=== PATIENT | male | born 1985 | race Caucasian/White ===

== ENCOUNTER 2023-12-14 05:38 | Observation (INO) | payer BC ==
[2023-12-14 05:55] LABS: Absolute Neutrophil Ct (ANC) 7.12 x10^3/uL (1.78-5.38); BASOPHIL % 0.7 % (0.2-1.2); Basophil (Absolute #) 0.08 x10^3/uL (0.01-0.08); Eosinophil % 3.1 % (0.8-7.0); Eosinophil (Absolute #) 0.35 x10^3/uL (0.04-0.54); Hematocrit 45.4 % (40.1-51.0); Hemoglobin 15.3 g/dL (13.7-17.5); IMMATURE GRAN # 0.04 x10^3u/L (0.001-0.031); IMMATURE GRAN % 0.4 % (0.001-0.429); Lymphocyte (Absolute #) 2.96 x10^3/uL (1.32-3.57); Lymphocytes % 26.5 % (21.8-53.1); Mean Cell Volume 76.6 fL (79.0-92.2); Mean Corpuscular Hemoglobin 25.8 pg (25.7-32.2); Mean Corpuscular Hgb Concent. 33.7 g/dL (32.3-36.5); Mean Platelet Volume 9.3 fL (9.4-12.4); Monocyte (Absolute #) 0.62 x10^3/uL (0.30-0.82); Monocytes % 5.6 % (5.3-12.2); Neutrophil % 63.7 % (34.0-67.9); Platelet Count 308 x10^3/uL (163-337); Red Blood Count 5.93 x10^6/uL (4.63-6.08); White Blood Count 11.2 x10^3/uL (4.23-9.07)
[2023-12-14 06:09] LABS: ALBUMIN 4.2 g/dL (3.5-5.0); ANION GAP 14.8 MEQ/L (5-15); BILIRUBIN,TOTAL 0.7 mg/dL (0.2-1.3); Calcium 9.8 mg/dL (8.4-10.2); Creatinine 1 1.22 mg/dL (0.66-1.25); EST GLOMERULAR FILTRATION RATE 77.3 ML/MIN; MAGNESIUM 2.2 mg/dL (1.6-2.3); Potassium 4.1 mmol/L (3.5-5.1); Total Protein 7.2 g/dL (6.3-8.2)
[2023-12-14] MEDS ORDERED: Nitrostat 0.4 MG (ED) SL ONE (06:23)
[2023-12-14] MEDS: Nitrostat 0.4 MG (ED) SL ONE (06:24)
[2023-12-14] MEDS ORDERED: BABY ASPIRIN 81 MG CHEW ONE (06:38)
[2023-12-14] MEDS: BABY ASPIRIN 81 MG CHEW PO ONE (06:38)
[2023-12-14] MEDS ORDERED: Zofran 4 MG/2 ML VIAL ONE (06:52)
[2023-12-14] MEDS ORDERED: MORPHINE SULFATE 2 MG INJ ONE (06:53)
--- NOTE | 2023-12-14 06:53 | ERPHSYRPT ---
<ARMAND BOYLE EduardDenise - Last Filed: 12/14/23 06:48> - History of Present Illness Time Seen by Provider: 12/14/23 06:00 Historian: patient Exam Limitations: no limitations Patient Subjective Stated Complaint: pt states he woke up with chest pain rad iating into his lt shoulder. rates pain 4/10 and describes as pulsing pain and pressure Triage Nursing Assessment: pt alert and oriented, answers questions approp. pt ambulates into room iwth steady gait noted. respirations nonlabored with lungs cta bilat. heart rate 98 on monitor, sinus rhythm. Physician History: This is a 38-year-old white male patient who arrives by private vehicle secondary to chest pain that came on suddenly at 445 this morning was anterior, substernal, central, pulsating pressure that radiates into his left shoulder. Gaurav aponte has a three-vessel coronary artery bypass. His inside sales specialist is Dr. Lizzy Garsia. He did take 1 baby aspirin prior to arrival. He rates his level of pain as a 4 out of 10. He denies cough. He denies fever. Although he states he does not have a history of hypertension or elevated cholesterol, he is taking metoprolol and atorvastatin. He has a history of anxiety, seizure disorder and gastroesophageal reflux disease. He is not short of breath. He states the last time he had the coronary artery bypass procedure, he did not have any pain. His constellation of symptoms today are different than before. Timing/Duration: today Activities at Onset: sleep Quality: pressure, other Location: substernal ([place]), central Chest Pain Radiation: arm (Left shoulder) Severity of Pain-Max: mild Severity of Pain-Current: mild Modifying Factors: Improves With: nothing Associated Symptoms: denies symptoms Prior Chest Pain/Cardiac Workup: no prior chest pain Nitro Today/Relief: no nitro taken today Aspirin Treatment Today: 81 mg x 1, provided at home Allergies/Adverse Reactions: No Known Drug Allergies Allergy (Verified 12/14/23 05:38) Home Medications: Aspirin 81 gm Chew [Baby Aspirin 81 mg Chew] 81 mg PO QAM 12/14/23 [Histor y] Atorvastatin Calcium [Lipitor 40Mg] 40 mg PO HS 12/14/23 [History] Buspirone HCl 5 mg [Buspar 5 mg] 5 mg PO TIDPRN 12/14/23 [History] Clopidogrel Bisulfate [Plavix] 75 mg PO DAILY 12/14/23 [History] Levetiracetam [Keppra] 750 mg PO BID 12/14/23 [History] Metoprolol Tartrate 50 mg [Lopressor 50 MG] 50 mg PO BID 12/14/23 [History] Omeprazole 20 mg PO DAILY 12/14/23 [History] Ropinirole HCl 0.5 mg [Requip 0.5 MG] 0.5 mg PO HS 12/14/23 [History] Testosterone Cypionate 200 mg IM UD 12/14/23 [History] Hx Tetanus, Diphtheria Vaccination/Date Given: Yes Hx Influenza Vaccination/Date Given: No Hx Pneumococcal Vaccination/Date Given: No Immunizations Up to Date: Yes Travel Risk - International Travel Have you traveled outside of the country in past 3 weeks: No - Emerging Infectious Disease Are you exhibiting symptoms associated with any current EIDs: No - Review of Systems Constitutional: No Symptoms Eyes: No Symptoms Ears, Nose, & Throat: No Symptoms Respiratory: No Symptoms Cardiac: Chest Pain Abdominal/Gastrointestinal: No Symptoms Genitourinary Symptoms: No Symptoms Musculoskeletal: No Symptoms Skin: No Symptoms Neurological: No Symptoms Psychological: No Symptoms Endocrine: No Symptoms Hematologic/Lymphatic: No Symptoms Immunological/Allergic: No Symptoms All Other Systems: Reviewed and Negative - Past Medical History Pertinent Past Medical History: Yes Neurological History: Other ENT History: No Pertinent History Cardiac History: Coronary Artery Disease, High Cholesterol, Hypertension Respiratory History: No Pertinent History Endocrine Medical History: No Pertinent History Musculoskeletal History: No Pertinent History GI Medical History: No Pertinent History History: No Pertinent History Psycho-Social History: Anxiety, Depression Male Reproductive Disorders: No Pertinent History Other Medical History: ADHD, seizures - Past Surgical History Past Surgical History: Yes Neuro Surgical History: No Pertinent History Cardiac: CABG Respiratory: No Pertinent History Gastrointestinal: No Pertinent History Genitourinary: No Pertinent History Musculoskeletal: No Pertinent History Male Surgical History: No Pertinent History Other Surgical History: ABSCESS REMOVED FROM CHEEK. triple vessel cabg nov 2022 Significant Family History: no pertinent family hx - Social History Smoking Status: Former smoker How long have you smoked: 12 YEARS Exposure to second hand smoke: Yes Alcohol Use: Socially Drug Use: none Patient Lives Alone: Yes - Social Determinants of Health Will the patient participate in the screening: Yes Do you worry about a steady place to live?: No Do you have any problems with any of the following?: No known problems In the past 12 months,have you had to go without utilities?: No Transportation Issues: No Has anyone in your support network made you feel unsafe?: No Have you or anyone in your house had to go without enough: No - Physical Exam General Appearance: no apparent distress, alert, anxiety Eye Exam: PERRL/EOMI, eyes nml inspection Ears, Nose, Throat Exam: normal ENT inspection, moist mucous membranes Neck Exam: normal inspection, non-tender, supple, full range of motion Respiratory Exam: normal breath sounds, chest tenderness, lungs clear, airway intact, No respiratory distress Cardiovascular Exam: regular rate/rhythm, normal heart sounds, normal peripheral pulses Gastrointestinal/Abdomen Exam: soft, normal bowel sounds, No tenderness Rectal Exam: not done Back Exam: normal inspection, normal range of motion, No CVA tenderness, No vertebral tenderness Extremity Exam: normal inspection, normal range of motion, pelvis stable Neurologic Exam: alert, oriented x 3, cooperative, thread checker II-XII nml as tested, nml cerebellar function, nml station & gait, sensation nml Skin Exam: normal color, warm, dry Lymphatic Exam: No adenopathy SpO2 Interpretation: normal SpO2: 96 O2 Delivery: Room Air - Course Nursing assessment & vital signs reviewed: Yes EKG Interpreted by Me: RATE (95), Sinus Rhythm, NORMAL AXIS, NORMAL INTERVALS, NORMAL QRS, NORMAL ST-T, Other (No acute ischemic changes on today's twelve-lead EKG. QTc is 467) - Progress Progress: improved, re-examined Air Movement: good Progress Note: 12/14/23 06:57 My medical decision making and the assignment of moderate complexity to this patient's medical issue today is based on review of the patient's past medical history, review the patient's medication list, reviewed patient drug allergy list, history present as and physical findings on examination. The workup includes placement of intravenous line, CBC, CMP, D-dimer, BNP, twelve-lead EKG, troponin level, chest x-ray, magnesium level. I am transferring care of this patient to Dr. Nirmal Sorenson at shift change. He will follow-up on pending lab results and make final disposition. Differential diagnosis includes but is not limited to musculoskeletal pain, electrolyte abnormalities, myocardial infarction, pulmonary embolus, pneumonia, arrhythmia Blood Culture(s) Obtained: No Antibiotics given: No Counseled pt/family regarding: lab results, diagnosis, rad results Medical Desision Making - Diagnostic Testing Radiological Interpretation: Interpreted by me - Departure Departure Disposition: Observation Clinical Impression: Chest pain Condition: Stable Critical Care Time: No Referrals: TAMIKO GALVAN, PROCESS MACHINE OPERATOR [Primary Care Provider] - Follow up/PCP as directed <NIRMAL SORENSON - Last Filed: 12/14/23 07:30> - Nursing Vital Signs Nursing Vital Signs: Initial Vital Signs Temperature 98.2 F 12/14/23 05:38 Pulse Rate 78 12/14/23 05:38 Respiratory Rate 18 12/14/23 05:38 Blood Pressure 162/107 12/14/23 05:38 O2 Sat by Pulse Oximetry 98 12/14/23 05:38 Pain Scale Pain Intensity 4 Ordered Tests: Active Orders 24 hr Category Date Time Status EKG-ER Only STAT Care 12/14/23 05:48 Active IV Insertion STAT Care 12/14/23 05:48 Active CHEST 1 VIEW (PORTABLE) Stat Exams 12/14/23 05:48 Taken CBC W DIFF Stat Lab 12/14/23 05:45 Completed CMP Stat Lab 12/14/23 05:45 Completed D-DIMER QUANTITATIVE Stat Lab 12/14/23 05:45 Completed MAGNESIUM Stat Lab 12/14/23 05:45 Completed TROPONIN Q4H Lab 12/14/23 05:45 Completed TROPONIN Q4H Lab 12/14/23 10:00 Ordered TROPONIN Q4H Lab 12/14/23 14:00 Ordered TROPONIN Q4H Lab 12/14/23 18:00 Ordered TROPONIN Q4H Lab 12/14/23 22:00 Ordered Medication Summary Discontinued Medications Generic Name Dose Route Start Last Admin Trade Name Freq PRN Reason Stop Dose Admin Aspirin 243 mg 12/14/23 06:33 12/14/23 06:38 Aspirin 81 Mg Tab.Chew PO 12/14/23 06:34 243 mg STAT ONE Administration Aspirin Confirm 12/14/23 06:38 Aspirin 81 Mg Tab.Chew Administered 12/14/23 06:39 Dose 243 mg .ROUTE .STK-MED ONE Morphine Sulfate 2 mg 12/14/23 06:45 12/14/23 06:55 Morphine Sulfate 2 Mg/Ml Inj IV 12/14/23 06:46 2 mg STAT ONE Administration Morphine Sulfate Confirm 12/14/23 06:53 Morphine Sulfate 2 Mg/Ml Inj Administered 12/14/23 06:54 Dose 2 mg .ROUTE .STK-MED ONE Nitroglycerin 0.4 mg 12/14/23 06:22 12/14/23 06:24 Nitroglycerin 0.4 Mg (Ed) 0.4 Mg Tab.Subl SL 12/14/23 06:23 0.4 mg STAT ONE Administration Nitroglycerin Confirm 12/14/23 06:23 Nitroglycerin 0.4 Mg (Ed) 0.4 Mg Tab.Subl Administered 12/14/23 06:24 Dose 0.4 mg SL .STK-MED ONE Ondansetron HCl 4 mg 12/14/23 06:45 12/14/23 06:55 Ondansetron Hcl 4 Mg/2 Ml Vial IV 12/14/23 06:46 4 mg STAT ONE Administration Ondansetron HCl Confirm 12/14/23 06:52 Ondansetron Hcl 4 Mg/2 Ml Vial Administered 12/14/23 06:53 Dose 4 mg .ROUTE .STK-MED ONE Lab/Rad Data: Laboratory Result Diagrams 12/14/23 05:45 12/14/23 05:45 Laboratory Results 12/14/23 12/14/23 12/14/23 Range/Units 05:45 05:45 05:45 WBC (4.23-9.07) x10^3/uL RBC (4.63-6.08) x10^6/uL Hgb (13.7-17.5) g/dL Hct (40.1-51.0) % MCV (79.0-92.2) fL MCH (25.7-32.2) pg MCHC (32.3-36.5) g/dL RDW (11.6-14.4) % Plt Count (163-337) x10^3/uL MPV (9.4-12.4) fL Gran % (34.0-67.9) % Immature Gran % (Auto) (0.001-0.429) % Nucleat RBC Rel Count (0.00-0.2) % Eos # (Auto) (0.04-0.54) x10^3/uL Immature Gran # (Auto) (0.001-0.031) x10^3u/L Absolute Lymphs (auto) (1.32-3.57) x10^3/uL Absolute Monos (auto) (0.30-0.82) x10^3/uL Absolute Nucleated RBC (0.00-0.012) x10^3u/L Lymphocytes % (21.8-53.1) % Monocytes % (5.3-12.2) % Eosinophils % (0.8-7.0) % Basophils % (0.2-1.2) % Absolute Granulocytes (1.78-5.38) x10^3/uL Basophils # (0.01-0.08) x10^3/uL D-Dimer < 0.19 (0.0-0.50) mg/L Sodium 137 (135-145) mmol/L Potassium 4.1 (3.5-5.1) mmol/L Chloride 105 (98-107) mmol/L Carbon Dioxide 22 (22-30) mmol/L Anion Gap 14.8 (5-15) MEQ/L BUN 14 (9-20) mg/dL Creatinine 1.22 (0.66-1.25) mg/dL Estimated GFR 77.3 ML/MIN Glucose 107 H (74-106) mg/dL Calcium 9.8 (8.4-10.2) mg/dL Magnesium 2.2 (1.6-2.3) mg/dL Total Bilirubin 0.70 (0.2-1.3) mg/dL AST 20 (17-59) U/L ALT 27 (0-50) U/L Alkaline Phosphatase 93 (38-126) U/L Troponin I < 0.012 (0.000-0.033) ng/mL Serum Total Protein 7.2 (6.3-8.2) g/dL Albumin 4.2 (3.5-5.0) g/dL 12/14/23 Range/Units 05:45 WBC 11.2 H (4.23-9.07) x10^3/uL RBC 5.93 (4.63-6.08) x10^6/uL Hgb 15.3 (13.7-17.5) g/dL Hct 45.4 (40.1-51.0) % MCV 76.6 L (79.0-92.2) fL MCH 25.8 (25.7-32.2) pg MCHC 33.7 (32.3-36.5) g/dL RDW 14.0 (11.6-14.4) % Plt Count 308 (163-337) x10^3/uL MPV 9.3 L (9.4-12.4) fL Gran % 63.7 (34.0-67.9) % Immature Gran % (Auto) 0.4 (0.001-0.429) % Nucleat RBC Rel Count 0.0 (0.00-0.2) % Eos # (Auto) 0.35 (0.04-0.54) x10^3/uL Immature Gran # (Auto) 0.04 H (0.001-0.031) x10^3u/L Absolute Lymphs (auto) 2.96 (1.32-3.57) x10^3/uL Absolute Monos (auto) 0.62 (0.30-0.82) x10^3/uL Absolute Nucleated RBC 0.00 (0.00-0.012) x10^3u/L Lymphocytes % 26.5 (21.8-53.1) % Monocytes % 5.6 (5.3-12.2) % Eosinophils % 3.1 (0.8-7.0) % Basophils % 0.7 (0.2-1.2) % Absolute Granulocytes 7.12 H (1.78-5.38) x10^3/uL Basophils # 0.08 (0.01-0.08) x10^3/uL D-Dimer (0.0-0.50) mg/L Sodium (135-145) mmol/L Potassium (3.5-5.1) mmol/L Chloride (98-107) mmol/L Carbon Dioxide (22-30) mmol/L Anion Gap (5-15) MEQ/L BUN (9-20) mg/dL Creatinine (0.66-1.25) mg/dL Estimated GFR ML/MIN Glucose (74-106) mg/dL Calcium (8.4-10.2) mg/dL Magnesium (1.6-2.3) mg/dL Total Bilirubin (0.2-1.3) mg/dL AST (17-59) U/L ALT (0-50) U/L Alkaline Phosphatase (38-126) U/L Troponin I (0.000-0.033) ng/mL Serum Total Protein (6.3-8.2) g/dL Albumin (3.5-5.0) g/dL - Progress Progress Note: 38-year-old male significant cardiovascular history. Patient reports recent history of triple bypass open heart surgery just last year. Patient presents today with complaints of substernal chest pain rating to his extremity. Patient initially evaluated by Dr. Boyle. Preliminary workup is essentially normal. D-dimer negative. Initial troponin negative. EKG normal sinus rhythm. No active chest pain at this time. Vitals have been stable. Patient's heart score is a 4. In light of patient's past medical history and cardiovascular risk factors patient will be admitted for cardiac rule out. Plan of care discussed with patient. He agrees to admission [facility] for further evaluation and treatment. Plan of care discussed with at 7:24 AM. We are awaiting completion of the second cardiac troponin prior to transfer to floor. If second troponin positive patient will be transferred to higher level of care otherwise patient will be admitted to [facility] for cardiac rule out. Portions of this note were created with voice recognition technology. There may be grammatical, spelling, punctuation or sound alike errors 12/14/23 07:27
[2023-12-14] MEDS: Zofran 4 MG/2 ML VIAL IV ONE (06:55)
[2023-12-14] MEDS: MORPHINE SULFATE 2 MG INJ IV ONE (06:55)
--- NOTE | 2023-12-14 08:46 | XRAY ---
Indication: Chest pain. Comparison: June 24, 2014 Portable chest remains inflated and clear. Heart not enlarged. Bony thorax intact with new sternotomy wires. No acute cardiopulmonary abnormalities.
--- NOTE | 2023-12-14 10:15 | PCM.HP ---
History of Present Illness - Chief Complaint Chief Complaint: Acute coronary syndrome, chest pain Date: 12/14/23 History of Present Illness: is a 38 year old male with PMHX of HTN, hyperlipidemia, anxiety, seizure disorder, obesity, and GERD. Patient has had a three-vessel coronary artery bypass. He came to the ER today for chest pain that came on suddenly at 4:45 this morning that was anterior, substernal, central, pulsating pressure that radiates into his left shoulder. His airline captain is Dr. Lizzy Garsia. He did take 1 baby aspirin prior to arrival. He rates his level of pain on admission was a 4 out of 10. He denies cough, fever, short of breath. He states the last time he had the coronary artery bypass procedure, he did not have any pain. His symptoms today are different than before. In the ER he was given ASA, morphine, nitro SL, and zofran. Sxs have improved since admission. Trop x2 negative. Since he has a significant heart hx will consult cardiology. He denies CP at this time. - Review of Systems Constitutional: No Fever, No Chills Eyes: No Symptoms Ears, Nose, & Throat: No Symptoms Respiratory: No Cough, No Short Of Breath Cardiac: Chest Pain, No Edema, No Syncope Abdominal/Gastrointestinal: No Abdominal Pain, No Nausea, No Vomiting, No Diarrhea Genitourinary Symptoms: No Dysuria Musculoskeletal: No Back Pain, No Neck Pain Skin: No Rash Neurological: No Dizziness, No Focal Weakness, No Sensory Changes Psychological: No Symptoms Endocrine: No Symptoms Hematologic/Lymphatic: No Symptoms Immunological/Allergic: No Symptoms Medications & Allergies Home Medications: Home Medication List Aspirin 81 gm Chew [Baby Aspirin 81 mg Chew] 81 mg PO QAM 12/14/23 [History Confirmed 12/14/23] Atorvastatin Calcium [Lipitor 40Mg] 40 mg PO HS 12/14/23 [History Confirmed 12/14/23] Buspirone HCl 5 mg [Buspar 5 mg] 5 mg PO TIDPRN 12/14/23 [History Confirmed 12/14/23] Clopidogrel Bisulfate [Plavix] 75 mg PO DAILY 12/14/23 [History Confirmed 12/14/23] Levetiracetam [Keppra] 750 mg PO BID 12/14/23 [History Confirmed 12/14/23] Methylphenidate HCl [Methylphenidate ER] 18 mg PO DAILY 12/14/23 [History Confirmed 12/14/23] Metoprolol Tartrate 50 mg [Lopressor 50 MG] 50 mg PO BID 12/14/23 [History Confirmed 12/14/23] Omeprazole 20 mg PO DAILY 12/14/23 [History Confirmed 12/14/23] Ropinirole HCl 0.5 mg [Requip 0.5 MG] 0.5 mg PO HS 12/14/23 [History Confirmed 12/14/23] Testosterone Cypionate 200 mg IM UD 12/14/23 [History Confirmed 12/14/23] Allergies/Adverse Reactions: Allergies Allergy/AdvReac Type Severity Reaction Status Date / Time No Known Drug Allergies Allergy Verified 12/14/23 05:38 - Past Medical History Past Medical History: Yes Neurological History: Other ENT History: No Pertinent History Cardiac History: Coronary Artery Disease, High Cholesterol, Hypertension Respiratory History: No Pertinent History Endocrine Medical History: No Pertinent History Musculoskelatal History: No Pertinent History GI Medical History: No Pertinent History History: No Pertinent History Pyscho-Social History: Anxiety, Depression Male Reproductive Disorders: No Pertinent History Comment: ADHD, seizures - Past Surgical History Past Surgical History: Yes Neuro Surgical History: No Pertinent History Cardiac History: CABG Respiratory Surgery: No Pertinent History GI Surgical History: No Pertinent History Genitourinary Surgical Hx: No Pertinent History Musculskeletal Surgical Hx: No Pertinent History Male Surgical History: No Pertinent History Other Surgical History: ABSCESS REMOVED FROM CHEEK. triple vessel cabg nov 2022 Significant Family History: no pertinent family hx - Social History Smoking Status: Former smoker How long have you smoked: 12 YEARS Exposure to second hand smoke: Yes Alcohol: Occasionally Drug Use: none - Social Determinants of Health Will the patient participate in the screening: Yes Do you worry about a steady place to live?: No Do you have any problems with any of the following?: No known problems In the past 12 months,have you had to go without utilities?: No Have you or anyone in your house had to go without enough: No Transportation Issues: No Has anyone in your support network made you feel unsafe?: No - Physical Exam Vital Signs: Vital Signs - 24 hr Temp Pulse Pulse Resp BP BP Pulse Ox 12/14/23 09:30 84 8 L 124/75 98 12/14/23 09:00 84 16 126/83 97 12/14/23 08:30 77 20 126/89 97 12/14/23 08:01 79 16 141/83 98 12/14/23 07:30 82 15 109/73 96 12/14/23 07:00 77 14 119/102 98 12/14/23 06:59 96 12/14/23 06:27 92 H 19 131/101 96 12/14/23 06:00 81 18 160/99 98 12/14/23 05:47 98 H 12/14/23 05:38 98.2 F 78 18 162/107 98 General Appearance: no apparent distress, alert, obese Neurologic Exam: alert, oriented x 3, cooperative, normal mood/affect, nml cerebellar function, nml station & gait, sensation nml, No motor deficits Eye Exam: PERRL/EOMI, eyes nml inspection Ears, Nose, Throat Exam: normal ENT inspection, TMs normal, pharynx normal, moist mucous membranes Neck Exam: normal inspection, non-tender, supple, full range of motion Respiratory Exam: normal breath sounds, lungs clear, No respiratory distress Cardiovascular Exam: regular rate/rhythm, normal heart sounds, normal peripheral pulses Gastrointestinal/Abdomen Exam: soft, normal bowel sounds, No tenderness, No mass Back Exam: normal inspection, normal range of motion, No CVA tenderness, No vertebral tenderness Extremity Exam: normal inspection, normal range of motion, pelvis stable Skin Exam: normal color, warm, dry, No rash Lymphatic Exam: No adenopathy Results - Labs Lab/Micro Results: Lab Results-Last 24 Hours 12/14/23 12/14/23 12/14/23 Range/Units 05:45 05:45 05:45 WBC 11.2 H (4.23-9.07) x10^3/uL RBC 5.93 (4.63-6.08) x10^6/uL Hgb 15.3 (13.7-17.5) g/dL Hct 45.4 (40.1-51.0) % MCV 76.6 L (79.0-92.2) fL MCH 25.8 (25.7-32.2) pg MCHC 33.7 (32.3-36.5) g/dL RDW 14.0 (11.6-14.4) % Plt Count 308 (163-337) x10^3/uL MPV 9.3 L (9.4-12.4) fL Gran % 63.7 (34.0-67.9) % Immature Gran % (Auto) 0.4 (0.001-0.429) % Nucleat RBC Rel Count 0.0 (0.00-0.2) % Eos # (Auto) 0.35 (0.04-0.54) x10^3/uL Immature Gran # (Auto) 0.04 H (0.001-0.031) x10^3u/L Absolute Lymphs (auto) 2.96 (1.32-3.57) x10^3/uL Absolute Monos (auto) 0.62 (0.30-0.82) x10^3/uL Absolute Nucleated RBC 0.00 (0.00-0.012) x10^3u/L Lymphocytes % 26.5 (21.8-53.1) % Monocytes % 5.6 (5.3-12.2) % Eosinophils % 3.1 (0.8-7.0) % Basophils % 0.7 (0.2-1.2) % Absolute Granulocytes 7.12 H (1.78-5.38) x10^3/uL Basophils # 0.08 (0.01-0.08) x10^3/uL D-Dimer (0.0-0.50) mg/L Sodium 137 (135-145) mmol/L Potassium 4.1 (3.5-5.1) mmol/L Chloride 105 (98-107) mmol/L Carbon Dioxide 22 (22-30) mmol/L Anion Gap 14.8 (5-15) MEQ/L BUN 14 (9-20) mg/dL Creatinine 1.22 (0.66-1.25) mg/dL Estimated GFR 77.3 ML/MIN Glucose 107 H (74-106) mg/dL Calcium 9.8 (8.4-10.2) mg/dL Magnesium 2.2 (1.6-2.3) mg/dL Total Bilirubin 0.70 (0.2-1.3) mg/dL AST 20 (17-59) U/L ALT 27 (0-50) U/L Alkaline Phosphatase 93 (38-126) U/L Troponin I < 0.012 (0.000-0.033) ng/mL Serum Total Protein 7.2 (6.3-8.2) g/dL Albumin 4.2 (3.5-5.0) g/dL 12/14/23 12/14/23 Range/Units 05:45 08:15 WBC (4.23-9.07) x10^3/uL RBC (4.63-6.08) x10^6/uL Hgb (13.7-17.5) g/dL Hct (40.1-51.0) % MCV (79.0-92.2) fL MCH (25.7-32.2) pg MCHC (32.3-36.5) g/dL RDW (11.6-14.4) % Plt Count (163-337) x10^3/uL MPV (9.4-12.4) fL Gran % (34.0-67.9) % Immature Gran % (Auto) (0.001-0.429) % Nucleat RBC Rel Count (0.00-0.2) % Eos # (Auto) (0.04-0.54) x10^3/uL Immature Gran # (Auto) (0.001-0.031) x10^3u/L Absolute Lymphs (auto) (1.32-3.57) x10^3/uL Absolute Monos (auto) (0.30-0.82) x10^3/uL Absolute Nucleated RBC (0.00-0.012) x10^3u/L Lymphocytes % (21.8-53.1) % Monocytes % (5.3-12.2) % Eosinophils % (0.8-7.0) % Basophils % (0.2-1.2) % Absolute Granulocytes (1.78-5.38) x10^3/uL Basophils # (0.01-0.08) x10^3/uL D-Dimer < 0.19 (0.0-0.50) mg/L Sodium (135-145) mmol/L Potassium (3.5-5.1) mmol/L Chloride (98-107) mmol/L Carbon Dioxide (22-30) mmol/L Anion Gap (5-15) MEQ/L BUN (9-20) mg/dL Creatinine (0.66-1.25) mg/dL Estimated GFR ML/MIN Glucose (74-106) mg/dL Calcium (8.4-10.2) mg/dL Magnesium (1.6-2.3) mg/dL Total Bilirubin (0.2-1.3) mg/dL AST (17-59) U/L ALT (0-50) U/L Alkaline Phosphatase (38-126) U/L Troponin I < 0.012 (0.000-0.033) ng/mL Serum Total Protein (6.3-8.2) g/dL Albumin (3.5-5.0) g/dL - Radiology Impressions Radiology Exams & Impressions: Radiology Procedures Category Date Time Status CHEST 1 VIEW (PORTABLE) Stat Exams 12/14/23 05:48 Completed Assessment/Plan (1) Chest pain Current Visit: Yes Status: Acute Assessment & Plan: - denies current CP - Tele - Trop x2 negative- trend - cardiology consult- tele - ASA, Morphine, Nitro, zofran gave in ER - hold testosterone and Methylphenidate - Follows Dr. Garsia - cardiology at [facility] Code(s): R07.9 - CHEST PAIN, UNSPECIFIED (2) HTN (hypertension) Current Visit: Yes Status: Chronic Assessment & Plan: - continue BP meds - monitor Code(s): I10 - ESSENTIAL (PRIMARY) HYPERTENSION (3) Seizure disorder Current Visit: Yes Status: Chronic Assessment & Plan: - Continue Keppra Code(s): G40.909 - EPILEPSY, UNSP, NOT INTRACTABLE, WITHOUT STATUS EPILEPTICUS (4) Obesity (BMI 30-39.9) Current Visit: Yes Status: Chronic Assessment & Plan: - advised heart healthy diet and exercise control Code(s): E66.9 - OBESITY, UNSPECIFIED (5) Hyperlipidemia Current Visit: Yes Status: Chronic Assessment & Plan: - continue statin Code(s): E78.5 - HYPERLIPIDEMIA, UNSPECIFIED
[2023-12-14] MEDS: Lopressor 50 MG PO SCH (12:35)
[2023-12-14] MEDS: KEPPRA PO SCH (12:35)
[2023-12-14] MEDS: Keppra 250 MG PO SCH (12:35)
[2023-12-14] MEDS: Protonix 40MG Tablet PO SCH (12:36)
[2023-12-14] MEDS: BUSPAR 5 MG PO SCH (12:36)
[2023-12-14] MEDS: PLAVIX Tablet PO SCH (12:36)
[2023-12-14] MEDS: Requip 0.5 MG PO SCH (21:45)
[2023-12-14] MEDS: ZOCOR 20MG PO SCH (21:45)
[2023-12-14] MEDS: ATARAX 25 MG PO SCH (21:46)
--- NOTE | 2023-12-14 23:54 | PCM.CONS ---
History of Present Illness - Date of Consult Date of Encounter: 12/14/23 [employer] Superintendent: DIANE RUBIO MD Requesting Provider: Attending Provider: NITHIN DIAZ MD Primary Care Provider: PCP: TAMIKO GALVAN NP - Consult Narrative Reason for Consult: chest pain HPI: Patient is a 38M with a history of obesity, HTN, CAD s/p CABG who presents with chest pain. He had a burning/pressure sensation in the center of his chest that radiated to his left arm. Has has never had this kind of pain in the past. The pain lasted several minutes and persisted despite his taking two aspirins. In the ED, initial ECG showed sinus rhythm without ischemia. Troponin negative x 3. denies fevers, chills, nausea, vomiting, diarrhea, syncope, presyncope, dysphagia,odynophagia, orthopnea, paroxysmal nocturnal dyspnea, shortness of breath, chest pain, refluxsymptoms, belly pain, dysuria, hematuria, melena, hematochezia, seizures, paralysis, or other neurological changes. All other systems have been reviewed and are negative. cc:: The requesting physician will be sent a copy of the consult. - Past Medical History Past Medical History: Yes Neurological History: Other ENT History: No Pertinent History Cardiac History: Coronary Artery Disease, High Cholesterol, Hypertension Respiratory History: No Pertinent History Endocrine Medical History: No Pertinent History Musculoskelatal History: No Pertinent History GI Medical History: No Pertinent History History: No Pertinent History Pyscho-Social History: Anxiety, Depression Male Reproductive Disorders: No Pertinent History Comment: ADHD, seizures - Past Surgical History Past Surgical History: Yes Neuro Surgical History: No Pertinent History Cardiac History: CABG Respiratory Surgery: No Pertinent History GI Surgical History: No Pertinent History Genitourinary Surgical Hx: No Pertinent History Musculskeletal Surgical Hx: No Pertinent History Male Surgical History: No Pertinent History Other Surgical History: ABSCESS REMOVED FROM CHEEK. triple vessel cabg nov 2022 Significant Family History: no pertinent family hx - Social History Smoking Status: Former smoker How long have you smoked: 12 YEARS Exposure to second hand smoke: Yes Alcohol: Occasionally Drug Use: none - Social Determinants of Health Will the patient participate in the screening: Yes Do you worry about a steady place to live?: No Do you have any problems with any of the following?: No known problems In the past 12 months,have you had to go without utilities?: No Have you or anyone in your house had to go without enough: No Transportation Issues: No Has anyone in your support network made you feel unsafe?: No Does the patient want assistance with any of the above?: No Medications & Allergies Home Medications: Home Medication List Aspirin 81 gm Chew [Baby Aspirin 81 mg Chew] 81 mg PO QAM 12/14/23 [History Confirmed 12/14/23] Atorvastatin Calcium [Lipitor 40Mg] 40 mg PO HS 12/14/23 [History Confirmed 12/14/23] Buspirone HCl 5 mg [Buspar 5 mg] 5 mg PO TID 12/14/23 [History Confirmed 12/14/23] Clopidogrel Bisulfate [Plavix] 75 mg PO DAILY 12/14/23 [History Confirmed 12/14/23] Hydroxyzine HCl 25 mg [Atarax 25 mg] 25 mg PO HS 12/14/23 [History Confirmed 12/14/23] Levetiracetam [Keppra] 750 mg PO BID 12/14/23 [History Confirmed 12/14/23] Methylphenidate HCl [Methylphenidate ER] 18 mg PO DAILY 12/14/23 [History Conf irmed 12/14/23] Metoprolol Tartrate 50 mg [Lopressor 50 MG] 50 mg PO BID 12/14/23 [History Confirmed 12/14/23] Omeprazole 20 mg PO DAILY 12/14/23 [History Confirmed 12/14/23] Ropinirole HCl 0.5 mg [Requip 0.5 MG] 0.5 mg PO HS 12/14/23 [History Confirmed 12/14/23] Testosterone Cypionate 200 mg IM UD 12/14/23 [History Confirmed 12/14/23] Allergies/Adverse Reactions: Allergies Allergy/AdvReac Type Severity Reaction Status Date / Time No Known Drug Allergies Allergy Verified 12/14/23 05:38 Exam - Vitals Vital Signs: Vital Signs - 24 hr Temp Pulse Pulse Resp BP BP Pulse Ox 12/14/23 23:41 97.5 F 64 20 117/64 97 12/14/23 20:00 97.8 F 67 18 123/76 97 12/14/23 15:00 97.5 F 72 16 124/75 97 12/14/23 11:59 98.4 F 74 16 124/68 97 12/14/23 10:40 97.9 F 86 16 168/94 99 12/14/23 10:08 84 12/14/23 10:07 97.9 F 86 16 168/94 99 12/14/23 09:30 84 8 L 124/75 98 12/14/23 09:00 84 16 126/83 97 12/14/23 08:30 77 20 126/89 97 12/14/23 08:01 79 16 141/83 98 12/14/23 07:30 82 15 109/73 96 12/14/23 07:00 77 14 119/102 98 12/14/23 06:59 96 12/14/23 06:27 92 H 19 131/101 96 12/14/23 06:00 81 18 160/99 98 12/14/23 05:47 98 H 12/14/23 05:38 98.2 F 78 18 162/107 98 General:: alert and oriented x 4, no acute distress HEENT: PERRLA, EOMI Cardiovascular Exam: regular rate/rhythm, normal heart sounds Respiratory Exam: normal breath sounds, No chest tenderness SpO2: 97 Oxygen Delivery: Room Air Gastrointestinal/Abdomen Exam: soft, normal bowel sounds, No tenderness Results Vital Signs: Vital Signs - 24 hr Temp Pulse Pulse Resp BP BP Pulse Ox 12/14/23 23:41 97.5 F 64 20 117/64 97 12/14/23 20:00 97.8 F 67 18 123/76 97 12/14/23 15:00 97.5 F 72 16 124/75 97 12/14/23 11:59 98.4 F 74 16 124/68 97 12/14/23 10:40 97.9 F 86 16 168/94 99 12/14/23 10:08 84 12/14/23 10:07 97.9 F 86 16 168/94 99 12/14/23 09:30 84 8 L 124/75 98 12/14/23 09:00 84 16 126/83 97 12/14/23 08:30 77 20 126/89 97 12/14/23 08:01 79 16 141/83 98 12/14/23 07:30 82 15 109/73 96 12/14/23 07:00 77 14 119/102 98 12/14/23 06:59 96 12/14/23 06:27 92 H 19 131/101 96 12/14/23 06:00 81 18 160/99 98 12/14/23 05:47 98 H 12/14/23 05:38 98.2 F 78 18 162/107 98 Pain Assessment - Last Documented Pain Intensity 0 Pain Scale Used 0-10 Pain Scale Intake and Output: Intake & Output 12/12/23 12/13/23 12/14/23 12/15/23 11:59 11:59 11:59 11:59 Intake Total 1460 Balance 1460 Weight 109.9 kg LAB: I have reviewed the Labs in [facility] Radiology Exams: Radiology Procedures Category Date Time Status CHEST 1 VIEW (PORTABLE) Stat Exams 12/14/23 05:48 Completed ECHO W/2D AND DOPPLER [US] Urgent Exams 12/14/23 13:01 Taken - ECHO Echo: image reviewed by me (normal lvef, no wma) Assessment & Plan (1) Chest pain Current Visit: Yes Status: Acute Assessment & Plan: Chest pain initially concerning for angina however hs troponin negative x 3 and no wall motion abnormality on echocardiogram. ECG without ST segment deviation to suggest ischemia. - Continue to monitor on telemetry - stat ecg and nitro if cp persists - treatment of htn - outpatient cardiology appointment with stress test. Code(s): R07.9 - CHEST PAIN, UNSPECIFIED (2) HTN (hypertension) Current Visit: Yes Status: Chronic Qualifiers: Hypertension type: primary hypertension Qualified Code(s): I10 - Essential (primary) hypertension Code(s): I10 - ESSENTIAL (PRIMARY) HYPERTENSION - Encounter Encounter: "The entirety of this encounter was performed via Telemedicine using audio and visual "
[2023-12-15 05:42] LABS: Hematocrit 44.3 % (40.1-51.0); Hemoglobin 14.6 g/dL (13.7-17.5); Mean Cell Volume 78.5 fL (79.0-92.2); Mean Corpuscular Hemoglobin 25.9 pg (25.7-32.2); Mean Platelet Volume 10.2 fL (9.4-12.4); Platelet Count 268 x10^3/uL (163-337); Red Blood Count 5.64 x10^6/uL (4.63-6.08); Red Cell Distribution Width 14.2 % (11.6-14.4); White Blood Count 10.4 x10^3/uL (4.23-9.07)
[2023-12-15 06:33] LABS: ANION GAP 15.3 MEQ/L (5-15); Calcium 8.8 mg/dL (8.4-10.2); Creatinine 1 1.2 mg/dL (0.66-1.25); EST GLOMERULAR FILTRATION RATE 78.9 ML/MIN; Potassium 3.5 mmol/L (3.5-5.1)
[2023-12-15 07:53] VITALS: RESP 16
[2023-12-15] MEDS: ECOTRIN 81 MG PO SCH (09:11)
--- NOTE | 2023-12-15 10:53 | PCM.DS ---
Discharge Summary Date of Admission: 12/14/23 10:03 Date of Discharge: 12/15/23 Admitting Physician: NITHIN DIAZ MD Consults: Consults on Case 12/14/23 10:07 Consult Cardiology ROUTINE Primary Care Provider: TAMIKO GALVAN NP Allergies Allergies No Known Drug Allergies Allergy (Verified 12/14/23 05:38) Hospital Summary - Hospital Course Hospital Course: 12/14/23 History of Present Illness: is a 38 year old male with PMHX of HTN, hyperlipidemia, anxiety, seizure disorder, obesity, and GERD. Patient has had a three-vessel coronary artery bypass. He came to the ER today for chest pain that came on suddenly at 4:45 this morning that was anterior, substernal, central, pulsating pressure that radiates into his left shoulder. His mechatronics technologist is Dr. Lizzy Hamilton. He did take 1 baby aspirin prior to arrival. He rates his level of pain on admission was a 4 out of 10. He denies cough, fever, short of breath. He states the last time he had the coronary artery bypass procedure, he did not have any pain. His symptoms today are different than before. In the ER he was given ASA, morphine, nitro SL, and zofran. Sxs have improved since admission. Trop x2 negative. Since he has a significant heart hx will consult cardiology. He denies CP at this time. 12/15/23 Pt resting in bed. He has had no CP since admission. Cardiology consulted and recommended pt f/u OP with his mechatronics technologist and have OP stress test. Trop x3 negative. Pt denies any further concerns at this time and ready to d/c. - Vitals & Intake/Output Vital Signs: Vital Signs Temperature 98.0 F 12/15/23 07:52 Pulse Rate 75 12/15/23 10:08 Respiratory Rate 16 12/15/23 07:52 Blood Pressure 107/59 12/15/23 07:52 O2 Sat by Pulse Oximetry 98 12/15/23 07:52 Intake & Output: Intake & Output 12/12/23 12/13/23 12/14/23 12/15/23 11:59 11:59 11:59 11:59 Intake Total 2059 Balance 2059 Weight 109.9 kg - Lab Result Diagrams: 12/15/23 05:27 12/15/23 05:27 Lab Results-Last 24 Hrs: Lab Results-Last 24 Hours 12/14/23 12/15/23 12/15/23 Range/Units 14:18 05:27 05:27 WBC 10.4 H (4.23-9.07) x10^3/uL RBC 5.64 (4.63-6.08) x10^6/uL Hgb 14.6 (13.7-17.5) g/dL Hct 44.3 (40.1-51.0) % MCV 78.5 L (79.0-92.2) fL MCH 25.9 (25.7-32.2) pg MCHC 33.0 (32.3-36.5) g/dL RDW 14.2 (11.6-14.4) % Plt Count 268 (163-337) x10^3/uL MPV 10.2 (9.4-12.4) fL Sodium 139 (135-145) mmol/L Potassium 3.5 (3.5-5.1) mmol/L Chloride 108 H (98-107) mmol/L Carbon Dioxide 20 L (22-30) mmol/L Anion Gap 15.3 H (5-15) MEQ/L BUN 13 (9-20) mg/dL Creatinine 1.20 (0.66-1.25) mg/dL Estimated GFR 78.9 ML/MIN Glucose 107 H (74-106) mg/dL Calcium 8.8 (8.4-10.2) mg/dL Troponin I < 0.012 (0.000-0.033) ng/mL - Radiology Exams Ordered Rad Exams-Entire Visit: Radiology Procedures Category Date Time Status CHEST 1 VIEW (PORTABLE) Stat Exams 12/14/23 05:48 Completed ECHO W/2D AND DOPPLER [US] Urgent Exams 12/14/23 13:01 Taken Discharge Exam General Appearance: no apparent distress, alert, obese Neurologic Exam: alert, oriented x 3, cooperative, normal mood/affect, nml cerebellar function, sensation nml, No motor deficits Eye Exam: PERRL, EOMI, eyes nml inspection Ears, Nose, Throat Exam: normal ENT inspection, pharynx normal, moist mucous membranes Neck Exam: normal inspection, non-tender, supple, full range of motion Respiratory Exam: normal breath sounds, lungs clear, No respiratory distress Cardiovascular Exam: regular rate/rhythm, normal heart sounds Gastrointestinal/Abdomen Exam: soft, No tenderness, No mass Male Genitalia Exam: deferred Rectal Exam: deferred Back Exam: normal inspection, normal range of motion, No CVA tenderness, No vertebral tenderness Extremity Exam: normal inspection, normal range of motion Skin Exam: normal color, warm, dry Final Diagnosis/Problem List - Final Discharge Diagnosis/Problem (1) Chest pain Current Visit: Yes Status: Acute Code(s): R07.9 - CHEST PAIN, UNSPECIFIED (2) HTN (hypertension) Current Visit: Yes Status: Chronic Code(s): I10 - ESSENTIAL (PRIMARY) HYPERTENSION (3) Seizure disorder Current Visit: Yes Status: Chronic Code(s): G40.909 - EPILEPSY, UNSP, NOT INTRACTABLE, WITHOUT STATUS EPILEPTICUS (4) Obesity (BMI 30-39.9) Current Visit: Yes Status: Chronic Code(s): E66.9 - OBESITY, UNSPECIFIED (5) Hyperlipidemia Current Visit: Yes Status: Chronic Assessment & Plan: (1) Chest pain Current Visit: Yes Status: Acute Assessment & Plan: - denies current CP - Tele - EKG - Trop x2 negative- trend - cardiology consult- tele- reviewed note and agree with plan of care - ASA, Morphine, Nitro, zofran gave in ER - hold testosterone and Methylphenidate - Follows Dr. Hamilton - cardiology at [facility] 12/14 - F/U with Dr. Hamilton OP and for stress test - CP resolved Code(s): R07.9 - CHEST PAIN, UNSPECIFIED (2) HTN (hypertension) Current Visit: Yes Status: Chronic Assessment & Plan: - continue BP meds - monitor Code(s): I10 - ESSENTIAL (PRIMARY) HYPERTENSION (3) Seizure disorder Current Visit: Yes Status: Chronic Assessment & Plan: - Continue Keppra Code(s): G40.909 - EPILEPSY, UNSP, NOT INTRACTABLE, WITHOUT STATUS EPILEPTICUS (4) Obesity (BMI 30-39.9) Current Visit: Yes Status: Chronic Assessment & Plan: - advised heart healthy diet and exercise control Code(s): E66.9 - OBESITY, UNSPECIFIED (5) Hyperlipidemia Current Visit: Yes Status: Chronic Assessment & Plan: - continue statin Code(s): E78.5 - HYPERLIPIDEMIA, UNSPECIFIED Code(s): E78.5 - HYPERLIPIDEMIA, UNSPECIFIED - Discharge Discharge Date: 12/15/23 Disposition: Home, Self-Care Condition: Stable Prescriptions: Continue Levetiracetam [Keppra] 750 mg PO BID Clopidogrel Bisulfate [Plavix] 75 mg PO DAILY Aspirin 81 gm Chew [Baby Aspirin 81 mg Chew] 81 mg PO QAM Metoprolol Tartrate 50 mg [Lopressor 50 MG] 50 mg PO BID Ropinirole HCl 0.5 mg [Requip 0.5 MG] 0.5 mg PO HS Atorvastatin Calcium [Lipitor 40Mg] 40 mg PO HS Buspirone HCl 5 mg [Buspar 5 mg] 5 mg PO TID Testosterone Cypionate 200 mg IM UD Omeprazole 20 mg PO DAILY Methylphenidate HCl [Methylphenidate ER] 18 mg PO DAILY Hydroxyzine HCl 25 mg [Atarax 25 mg] 25 mg PO HS Outpatient Orders: Stress Test: Regular Facility: [facility], Location: RESPIRATORY THERAPY Instructions: Chest pain Additional Instructions: CARDIAC STRESS TEST ON 12/22/23 AT 10 AM, HOLD METOPROLOL FOR 48 HOURS BEFORE TEST Follow up with: TAMIKO GALVAN NP [Primary Care Provider] - 12/23/23 10:00 am JOSE HAMILTON [CONSULTING PHYSICIAN] - 01/19/24 10:30 am (Scheduling has s ent a note back to see if they can get you scheduled for a sooner appointment. Office will call you, if a sooner appointment is available.) Forms: Discharge Instructions
[2023-12-15 11:50] VITALS: BP 122/75; PULSE 73; TEMP 97.1; O2SAT 99
== END 2023-12-15 11:40 | disposition home or self-care (01) ==
LOC: ED 05:38 → MED SURG 10:03
PROVIDERS: ADMIT Internal Medicine; ATTEND Internal Medicine
DX: R07.9 Chest pain, unspecified (principal); I10 Essential (primary) hypertension; E78.5 Hyperlipidemia, unspecified; F41.9 Anxiety disorder, unspecified; E66.9 Obesity, unspecified; G40.909 Epilepsy, unspecified, not intractable, without status epilepticus; I25.10 Atherosclerotic heart disease of native coronary artery without angina pectoris; Z79.01 Long term (current) use of anticoagulants; Z79.899 Other long term (current) drug therapy; Z95.0 Presence of cardiac pacemaker
CPT/HCPCS: 36000; 36415; 71045; 80048; 80053; 83735; 84484; 85025; 85027; 85379; 93005; 93268; 93306; 96374; 96375; 99285; G0378; Q3014; J2270; J2405; A9270-GY